=== PATIENT | male | born 1955 | race Caucasian/White ===

== ENCOUNTER 2024-01-09 09:59 | Emergency (ER) | payer OTHER ==
[2024-01-09] MEDS ORDERED: TDAP (DIPHTH,PERTUSS(ACELL),TET VAC) 0.5 ML VIAL IMVAC ONE (10:35)
--- NOTE | 2024-01-09 10:49 | RAD REPORT ---
EXAM DESCRIPTION: CT - Head Brain Wo Cont - 01/09/2024 10:27 am CLINICAL HISTORY: Head injury status post fall COMPARISON: none TECHNIQUE: Computed axial tomography of the head was obtained. IV contrast was not requested. All CT scans are performed using dose optimization technique as appropriate and may include automated exposure control or mA/KV adjustment according to patient size. FINDINGS: An intracranial bleed is not seen The ventricles are normal in caliber No significant hypodense areas within the brain visualized No extra-axial fluid collection is noted. Fluid within the sinuses/ mastoids is not seen IMPRESSION: No acute intracranial abnormality is seen If patient's symptoms persist MRI of the brain would be recommended
[2024-01-09 10:58] LABS: Absolute Basophils 0.1 K/uL (0-0.5); Absolute Eosinophils 0.2 K/uL (0-0.5); Absolute Lymphocytes (CBC) 1.9 K/uL (0.7-4.9); Absolute Monocytes 0.8 K/uL (0.1-1.3); Absolute Neutrophil 7.5 K/uL (1.8-8.0); Basophils % 0.5 % (0-1.3); Eosinophils % 1.4 % (0-4.4); Hematocrit 52.8 % (39.6-49.0); Hemoglobin 17.6 g/dL (13.6-17.9); Lymphocytes % 18.3 % (15.3-44.8); MCHC 33.3 g/dL (32.0-36.0); MCV 96.1 fL (80-100); MPV 8.4 fL (7.6-11.3); Monocytes % 7.5 % (3.3-12.3); Neutrophils % 72.3 % (41.7-73.7); Platelets 281 thou/uL (152-406); RBC Red Blood Cell Count 5.49 M/uL (4.33-5.43); Red Cell Distribution Width 12.8 % (12.1-15.2)
[2024-01-09 11:17] LABS: Anion Gap 7.3 mEq/L (5.0-15.0); Potassium 4.3 mEq/L (3.5-5.1); Troponin High Sensitivity 14.8 pg/mL (<58.9)
--- NOTE | 2024-01-09 12:09 | ER ---
Nurse's Notes [facility] Name: Kj Mullins Age: 68 yrs Sex: Male : 1955 Arrival Date: 01/09/2024 Time: 09:59 Bed 13 Private MD: Diagnosis: Scalp Laceration/ Open wound of scalp;Syncope;Acute post-traumatic headache Presentation: 01/08 10:08 Chief complaint: Was standing at the kitchen sink, choked on water, passed out and woke hb up on the floor. Laceration noted to back of head, bleeding controlled. Coronavirus screen: At this time, the client does not indicate any symptoms associated with coronavirus-19. Ebola Screen: No symptoms or risks identified at this time. Mechanism of Injury: The problem was sustained at home, resulted from fall from standing. Initial Sepsis Screen: Does the patient meet any 2 criteria? No. Patient's initial sepsis screen is negative. Does the patient have a suspected source of infection? No. Patient's initial sepsis screen is negative. Risk Assessment: Do you want to hurt yourself or someone else? Patient reports no desire to harm self or others. Onset of symptoms was January 09, 2024. 10:08 Method Of Arrival: Ambulatory hb 10:08 Acuity: BETI 2 hb Triage Assessment: 10:15 General: Appears in no apparent distress. comfortable, Behavior is calm, cooperative, bp appropriate for age. Pain: Complains of pain in scalp. Neuro: Reports a syncopal episode. Injury Description: Laceration sustained to scalp is full thickness, 2.6 to 7.5 cm long. Historical: - Allergies: 10:11 No Known Allergies; hb - Home Meds: 10:11 rosuvastatin oral [Active]; dutasteride oral [Active]; Metoprolol Tartrate Oral hb [Active]; ezetimibe oral [Active]; tamsulosin oral [Active]; CoQ-10 100 mg oral capsule [Active]; multivitamin oral [Active]; milk thistle oral [Active]; Vitamin D3 oral [Active]; - PMHx: 10:11 Hypertension; hb - PSHx: 10:11 Appendectomy; Tonsillectomy; hb - Immunization history:: Adult Immunizations up to date. - Infectious Disease History:: Denies. - Social history:: Smoking status: Patient denies any tobacco usage or history of. Screenin:15 [facility] ED Fall Risk Assessment (Adult) History of falling in the last 3 months, bp including since admission No falls in past 3 months (0 pts). Abuse screen: Denies threats or abuse. Denies injuries from another. Nutritional screening: No deficits noted. Tuberculosis screening: No symptoms or risk factors identified. Assessment: 10:15 General: Appears in no apparent distress. Behavior is calm, cooperative, appropriate bp for age. Pain: Complains of pain in scalp. Neuro: Level of Consciousness is awake, alert, obeys commands, Oriented to Appropriate for age. 11:49 Reassessment: Patient appears in no apparent distress at this time. Patient is alert, bp oriented x 3, equal unlabored respirations, skin warm/dry/pink. Vital Signs: 10:08 BP 146 / 83; Pulse 78; Resp 16; Temp 98.4(TE); Pulse Ox 95% on R/A; Weight 104.33 kg; hb Height 6 ft. 0 in. ; Pain 5/10; 11:45 BP 133 / 78; Pulse 83; Resp 16; Pulse Ox 97% ; bp 10:08 Body Mass Index 31.19 (104.33 kg, 182.88 cm) hb 10:08 Pain Scale: Adult hb [place] Coma Score: 10:08 Eye Response: spontaneous(4). Motor Response: obeys commands(6). Verbal Response: hb oriented(5). Total: 15. ED Course: 10:00 Patient arrived in ED. rg4 10:01 Jamarcus Gorman MD is Attending Physician. ec2 10:11 Triage completed. hb 10:15 Patient has correct armband on for positive identification. bp 10:17 Jc Carmen, RN is Primary Nurse. bp 10:17 Arm band placed on. hb 10:27 CT Head Brain wo Cont In Process Unspecified. EDMS 10:37 EKG done, by ED staff, reviewed by Jamarcus Gorman MD. [id number] 10:44 Inserted saline lock: 22 gauge in right antecubital area, using aseptic technique. bp Blood collected. 11:30 Wound care: to laceration located on scalp was cleaned with soap and water, Patient bp tolerated well. 12:22 Assist provider with laceration repair on scalp that was between 2.6 to 7.5 cm using bp cabrera. Performed by Jamarcus Gorman MD Dressed with Neosporin. IV discontinued, intact, bleeding controlled, No redness/swelling at site. Pressure dressing applied. Administered Medications: 10:43 Drug: Boostrix Tdap IM 0.5 ml IM once; as a single dose Route: IM; Site: right deltoid; bp Outcome: 12:08 Discharge ordered by . ec2 12:22 Discharged to home ambulatory, with family, bp 12:22 Condition: stable 12:22 Discharge instructions given to patient, Instructed on discharge instructions, follow up and referral plans. wound care, Demonstrated understanding of instructions, follow-up care, wound care, 12:23 Patient left the ED. bp Signatures: Dispatcher [employer] Britney Souza RN RN hb Garcia, Rubi rg4 Jc Carmen RN RN bp Gorman, MD ARLEN Ricketts ec2 Ayad Mccarthy [email or web address] Corrections: (The following items were deleted from the chart) 10:17 10:11 Home Meds: tamsulosin oral; hb hb
--- NOTE | 2024-01-09 12:09 | EDPHYS ---
Physician Documentation [facility] Name: Kj Mullins Age: 68 yrs Sex: Male : 1955 Arrival Date: 01/09/2024 Time: 09:59 Bed 13 Private MD: ED Physician Jamarcus Gorman HPI: 01/08 10:16 This 68 yrs old Male presents to ER via Ambulatory with complaints of Passed ec2 Out Prior To Arrival, Head Injury-Adult. 10:16 Patient arrives today for evaluation after a syncopal episode uncontrollable fall. ec2 Patient reports that he was having a coughing fit, and subsequently had passed out. Reports loss of conscious, no blood thinner use. Complaining of head pain, no chest pain, no difficulty breathing, no abdominal pain. Unsure of last tetanus status.. Historical: - Allergies: 10:11 No Known Allergies; hb - Home Meds: 10:11 rosuvastatin oral [Active]; dutasteride oral [Active]; Metoprolol Tartrate Oral hb [Active]; ezetimibe oral [Active]; tamsulosin oral [Active]; CoQ-10 100 mg oral capsule [Active]; multivitamin oral [Active]; milk thistle oral [Active]; Vitamin D3 oral [Active]; - PMHx: 10:11 Hypertension; hb - PSHx: 10:11 Appendectomy; Tonsillectomy; hb - Immunization history:: Adult Immunizations up to date. - Infectious Disease History:: Denies. - Social history:: Smoking status: Patient denies any tobacco usage or history of. ROS: 10:16 Constitutional: as per hpi ec2 Exam: 10:16 Constitutional: GEN: No acute distress HEENT: -Head: no deformities -Eyes: EOMI CV: ec2 regular rate LUNGS: no respiratory distress ABD: non-tender SKIN: Small laceration noted to the occiput. MSK: No C/T/L spine deformities RUE w/o bony deformity LUE w/o bony deformity RLE w/o bony deformity LLE w/o bony deformity NEURO: moves all extremities equally, GCS 15 (E4, V5, M6) Vital Signs: 10:08 BP 146 / 83; Pulse 78; Resp 16; Temp 98.4(TE); Pulse Ox 95% on R/A; Weight 104.33 kg; hb Height 6 ft. 0 in. ; Pain 5/10; 11:45 BP 133 / 78; Pulse 83; Resp 16; Pulse Ox 97% ; bp 10:08 Body Mass Index 31.19 (104.33 kg, 182.88 cm) hb 10:08 Pain Scale: Adult hb [place] Coma Score: 10:08 Eye Response: spontaneous(4). Motor Response: obeys commands(6). Verbal Response: hb oriented(5). Total: 15. Laceration: 12:14 Wound Repair of 6cm ( 2.4in ) subcutaneous laceration to scalp. Distal ec2 neuro/vascular/tendon intact. Skin closed with 7 1-0 Neftali using staple gun. Patient tolerated well. MDM: 10:06 Patient medically screened. ec2 10:16 Data reviewed: vital signs. ED course: Patient arrives today for evaluation after ec2 syncopal episode with a head injury. Examination remarkable for well-appearing nontoxic dividual's otherwise in no acute distress, has laceration to the occiput. Will obtain lab work, CT imaging. Differential diagnosis includes arrhythmia, electrolyte disturbances, anemia, intracranial brain bleed. Will update his tetanus status.. 11:00 ED course: EKG independently reviewed and interpreted by me, shows normal sinus rhythm, ec2 rate of 72, no acute ST segment ovation's, nonspecific T wave inversions noted in the lateral leads. . 11:31 ED course: Metabolic profile is reassuring, CBC reassuring, troponin within normal ec2 ranges, CT scan of the head independently reviewed and interpreted by me, shows no acute intracranial abnormality. . 12:14 ED course: On reassessment patient is well-appearing in no acute distress. I placed 7 ec2 neftali to the occiput with no complication. Will discharge home. Return precautions given. . 12:14 ED course: MDM: Differential diagnosis as documented above in ED course; All lab tests ec2 ordered and reviewed as documented above; Independent interpretation of tests: EKG as above; imaging as above; . 01/08 10:15 Order name: Basic Metabolic Panel; Complete Time: 11:31 ec2 01/08 10:15 Order name: CBC with Diff; Complete Time: 11:31 ec2 01/08 10:15 Order name: Troponin HS; Complete Time: :31 ec2 01/08 10:15 Order name: CT Head Brain wo Cont; Complete Time: 11:31 ec2 01/08 10:15 Order name: EKG; Complete Time: 10:15 ec2 01/08 10:15 Order name: Cardiac monitoring; Complete Time: 10:17 ec2 01/08 10:15 Order name: EKG - Nurse/Tech; Complete Time: 10:20 ec2 01/08 10:15 Order name: IV Saline Lock; Complete Time: 10:43 ec2 01/08 10:15 Order name: Labs collected and sent; Complete Time: 10:43 ec2 01/08 10:15 Order name: O2 Per Protocol; Complete Time: 10: ec2 01/08 10:15 Order name: O2 Sat Monitoring; Complete Time: : ec2 01/08 10:30 Order name: Wound Care; Complete Time: 10:52 ec2 Administered Medications: 10:43 Drug: Boostrix Tdap IM 0.5 ml IM once; as a single dose Route: IM; Site: right deltoid; bp Disposition Summary: 01/09/24 12:08 Discharge Ordered Condition: Stable ec2 Diagnosis - Scalp Laceration/ Open wound of scalp ec2 - Syncope ec2 - Acute post-traumatic headache ec2 Followup: ec2 - With: Private Physician - When: - Reason: Re-evaluation by your physician Discharge Instructions: - Discharge Summary Sheet ec2 - Sutures, [place], or Adhesive Wound Closure, [id number] ec2 Forms: - Medication Reconciliation Form ec2 - Antibiotic Education ec2 - Prescription Opioid Use ec2 - Patient Portal Instructions ec2 - Leadership Thank You Letter ec2 Signatures: Dispatcher [employer] Britney Souza RN RN Jc Miranda RN RN bp Jamarcus Gorman MD MD ec2 Corrections: (The following items were deleted from the chart) 10: 10:11 Home Meds: tamsulosin oral; hb hb
[2024-01-09 12:33] VITALS: BP 133/78; TEMP 98.4; O2SAT 97
--- NOTE | 2024-01-12 15:04 | EKG ---
Test Date: 2024-01-09 Test Time: 10:33:50 Graphic Design Professor: JONNY MEASUREMENT RESULTS: Intervals: Rate: 72 W[place]: 224 QRSD: 96 QT: 420 QTc: 459 [place]: P: 31 WY: 224 QRS: 67 T: 92 INTERPRETIVE STATEMENTS: Sinus rhythm with 1st degree AV block T wave abnormality, consider lateral ischemia Abnormal ECG No previous ECG available for comparison Electronically Signed On 01-12-24 14:54:38 CDT by Gene Kumari
== END 2024-01-09 12:23 | disposition home or self-care (01) ==
LOC: ER 09:59
PROC: 0HQ0XZZ Repair Scalp Skin, External Approach (ICD-10-PCS; principal; 2024-01-09)
DX: S01.01XA Laceration without foreign body of scalp, initial encounter (principal)
CPT/HCPCS: 12001; 36415; 70450; 80048; 84484; 85025; 93005; 96372; 99284

== ENCOUNTER 2024-01-19 12:36 | Emergency (ER) | payer OTHER ==
--- NOTE | 2024-01-19 13:12 | EDPHYS ---
Physician Documentation [facility] Name: Kj Mullins Age: 68 yrs Sex: Male : 1955 Arrival Date: 01/19/2024 Time: 12:36 Bed IW7 Private MD: ED Physician Yonny Zhou HPI: 01/18 13:19 This 68 yrs old Male presents to ER via Ambulatory with complaints of Suture Removal. sb4 13:19 The patient has cabrera on the scalp. Previous treatment: The patient was initially sb4 treated 7 day(s) ago, the care was rendered at [facility], Treatment type: The patient's original treatment included cabrera. Sutures/cabrera progress: The patient has no c/o's. The wound is well-healing with no redness, swelling, discharge, or dehiscence reported. Historical: - Allergies: 13:08 No Known Allergies; ph - Home Meds: 13:08 Vitamin D3 oral [Active]; ph - PMHx: 13:08 Hypertension; ph - PSHx: 13:08 Appendectomy; Tonsillectomy; ph - Immunization history:: Adult Immunizations up to date. - Infectious Disease History:: Denies. - Social history:: Smoking status: Patient denies any tobacco usage or history of. ROS: 13:19 Constitutional: Negative for fever, chills, and weight loss, sb4 13:19 Skin: Positive for per HPI, 13:19 All other systems are negative, Exam: 13:19 Constitutional: This is a well developed, well nourished patient who is awake, alert, sb4 and in no acute distress. Head/Face: Normocephalic, atraumatic. Eyes: Extra-ocular motions intact. Periorbital areas with no swelling, redness, or edema. ENT: Mucous membranes moist. 13:19 Skin: Wound recheck: Suture laceration closure: the wound is healing well, the edges are well approximated, no evidence of dehiscence, no drainage, no erythema, no swelling, Vital Signs: 13:23 BP 142 / 86; Pulse 68; Resp 18; Temp 98; Pulse Ox 99% on R/A; ph Procedures: 13:19 Suture/Staple removal: Removed 7 cabrera, from scalp, site appears well healed, Patient sb4 tolerated well. MDM: 12:52 Patient medically screened. sb4 13:20 Data reviewed: vital signs, nurses notes, and as a result, I will discharge patient. sb4 Counseling: I had a detailed discussion with the patient and/or guardian regarding the historical points, exam findings, and any diagnostic results supporting the discharge/admit diagnosis, to return to the emergency department if symptoms worsen or persist or if there are any questions or concerns that arise at home. Administered Medications: No medications were administered Disposition: 14:30 Co-signature as Attending Physician, Yonny Zhou MD I reviewed the patient's care rt provided by the Advanced Practice Provider and agree with the diagnosis and treatment plan. Disposition Summary: 01/19/24 13:11 Discharge Ordered Notes: Location: Home sb4 Problem: new sb4 Symptoms: are resolved sb4 Condition: Stable sb4 Diagnosis - Encounter for removal of sutures - / cabrera sb4 Followup: sb4 - With: Emergency Department - When: As needed - Reason: Trouble breathing, Worsening of condition Discharge Instructions: - Discharge Summary Sheet sb4 - Suture Removal, Care After sb4 Forms: - Medication Reconciliation Form sb4 - Antibiotic Education sb4 - Prescription Opioid Use sb4 - Patient Portal Instructions sb4 - Leadership Thank You Letter sb4 Signatures: Suly Donovan RN RN ph Tracey Harp, PA-C PA-C sb4 Yonny Zhou MD MD rt
--- NOTE | 2024-01-19 13:12 | ER ---
Nurse's Notes [facility] Name: Kj Mullins Age: 68 yrs Sex: Male : 1955 Arrival Date: 01/19/2024 Time: 12:36 Bed IW7 Private MD: Diagnosis: Encounter for removal of sutures-/ neftali Presentation: 01/18 13:07 Chief complaint: Patient states: Neftali to back of head x 11 days. Coronavirus screen: ph Vaccine status: Patient reports receiving the 2nd dose of the covid vaccine. Ebola Screen: No symptoms or risks identified at this time. Initial Sepsis Screen: Does the patient meet any 2 criteria? No. Patient's initial sepsis screen is negative. Does the patient have a suspected source of infection? No. Patient's initial sepsis screen is negative. Risk Assessment: Do you want to hurt yourself or someone else? Patient reports no desire to harm self or others. Onset of symptoms was January 19, 2024. 13:07 Method Of Arrival: Ambulatory 13:07 Acuity: BETI 5 Triage Assessment: 13:09 General: Appears in no apparent distress. Behavior is calm, cooperative. Pain: Denies ph pain. Historical: - Allergies: 13:08 No Known Allergies; ph - Home Meds: 13:08 Vitamin D3 oral [Active]; ph - PMHx: 13:08 Hypertension; ph - PSHx: 13:08 Appendectomy; Tonsillectomy; ph - Immunization history:: Adult Immunizations up to date. - Infectious Disease History:: Denies. - Social history:: Smoking status: Patient denies any tobacco usage or history of. Screenin:09 [facility] ED Fall Risk Assessment (Adult) History of falling in the last 3 months, ph including since admission No falls in past 3 months (0 pts) Confusion or Disorientation No (0 pts) Intoxicated or Sedated No (0 pts) Impaired Gait No (0 pts) Mobility Assist Device Used No (0 pt) Altered Elimination No (0 pt) Score/Fall Risk Level 0 - 2 = Low Risk Oriented to surroundings, Maintained a safe environment, Hourly rounding (assess needs \T\ fall precautionary measures) done. Abuse screen: Denies threats or abuse. Denies injuries from another. Nutritional screening: No deficits noted. Tuberculosis screening: No symptoms or risk factors identified. Assessment: 13:09 General: PA in triage for staple removal, pt tolerating well. ph Vital Signs: 13:23 BP 142 / 86; Pulse 68; Resp 18; Temp 98; Pulse Ox 99% on R/A; ph ED Course: 12:38 Patient arrived in ED. mr 12:39 Tracey Harp PA-C [facility]. sb4 12:39 Yonny Zhou MD is Attending Physician. sb4 13:08 Triage completed. ph 13:09 Arm band placed on. ph 13:09 Patient has correct armband on for positive identification. ph 13:23 No provider procedures requiring assistance completed. Patient did not have IV access ph during this emergency room visit. Administered Medications: No medications were administered Medication: 13:09 VIS not applicable for this client. ph Outcome: 13:11 Discharge ordered by . sb4 13:23 Discharged to home ambulatory, ph 13:23 Condition: good 13:23 Discharge instructions given to patient, Instructed on discharge instructions, follow up and referral plans. Demonstrated understanding of instructions, follow-up care, 13:23 Patient left the ED. ph Signatures: Robina Raymond, Reg Reg Suly Donovan, RN RN ph Tracey Harp PA-C PA-C sb4
[2024-01-19 19:39] VITALS: BP 142/86; TEMP 98; O2SAT 99
== END 2024-01-19 13:23 | disposition home or self-care (01) ==
LOC: ER 12:36
DX: Z48.02 Encounter for removal of sutures (principal)